=== PATIENT | female | born 1955 | race Caucasian/White ===

== ENCOUNTER 2016-07-18 20:48 | Emergency (ER) | payer OTHER ==
[2016-07-18 21:37] VITALS: BP 119/73
--- NOTE | 2016-07-18 22:27 | RAD ---
INDICATION: Pain at the first metacarpal phalangeal joint COMPARISON: None. TECHNIQUE: 4 views of the right hand were obtained. FINDINGS: The adequately corticated bones are in normal alignment. No significant focal osseous abnormality or fracture is seen. Joint spaces appear maintained. IMPRESSION: Normal right hand radiograph. If the patient's symptoms persist, follow-up imaging is recommended.
--- NOTE | 2016-07-18 22:30 | UC ---
Hand/Wrist HPI - HPI Summary HPI Summary: The patient comes in today for: 1. Right hand pain/2nd MP joint pain/swelling. Onset: Yesterday. Palliative/provocative: Pressing her hand down on the counter, writing with a pen, and picking up the vegetables out of a pot. Quality: Ache Region: Right hand, right MP joint of the index finger. Severity: 7/10 Time: Comes and goes. Associated symptoms: Event: She banged her hand yesterday on her bathroom door. Home Rx: Nothing. * - History Of Current Complaint Chief Complaint: UCUpperExtremity Stated Complaint: KNUCKLE INJURY Hx Obtained From: Patient ?: No - Allergies/Home Medications Allergies/Adverse Reactions: Allergies Allergy/AdvReac Type Severity Reaction Status Date / Time Amoxicillin [From Augmentin] AdvReac Mild GI Upset Verified 04/14/16 13:37 Clavulanic Acid AdvReac Mild GI Upset Verified 04/14/16 13:37 [From Augmentin] Codeine AdvReac Mild GI Upset Verified 04/14/16 13:37 Hydrocodone [From Vicodin] AdvReac Unknown GI Upset Verified 04/14/16 13:37 PMH/Surg Hx/FS Hx/Imm Hx Previously Healthy: No - Irritable bowel syndrome, ulcerative colitis. Endocrine History Of: Reports: Thyroid Disease - Nodules on thyroid., Dyslipidemia Denies: Diabetes, Hyperthyroidism, Hypothyroidism Cardiovascular History Of: Denies: Cardiac Disorders, Hypertension, Pacemaker/ICD, Myocardial Infarction , Congestive Heart Failure, Atrial Fibrillation, Deep Vein Thrombosis, Bleeding Disorders Respiratory History Of: Reports: COPD, Asthma GI/ History Of: Reports: Gastroesophageal Reflux - Barretts Disease Denies: Ulcer, Gastrointestinal Bleed, Gall Bladder Disease, Kidney Stones, Diverticulitis, Renal Disease, Urosepsis Neurological History Of: Denies: TIA, CVA, Dementia, Seizures, Migraine Psychological History Of: Reports: Anxiety, Depression - ON DAILY MEDS Denies: Bipolar Disorder, Schizophrenia, Post Traumatic Stress Disorder Cancer History Of: Denies: Lung Cancer, Colorectal Cancer, Breast Cancer, Prostate Cancer, Cervical Cancer Other History Of: Negative For: HIV, Hepatitis B, Hepatitis C, Anticoagulant Therapy - Surgical History Surgical History: Yes Surgery Procedure, Year, and Place: hx fna thyroid Dr Oconnell,. hysterectomy,. LEFT wrist surgeries,. Sinus surgerIES FOR RE-OCURRING TUMORS, MOST RECENT 03/31 W/ A TUBE PLACED WITH ANTIBIOTICS THAT WILL BE REMOVED 04/15/16. BILATERAL FEET BUNION REMOVAL,. RT WRIST ORIF - Family History Known Family History: Positive: Cardiac Disease, Hypertension - Social History Occupation: Disabled - COPD, Retired Alcohol Use: None Substance Use Type: None Smoking Status (MU): Light Every Day Tobacco Smoker Type: Cigarettes Amount Used/How Often: 1 PACK/WEEK Review of Systems Constitutional: Negative Skin: Negative Eyes: Negative ENT: Negative Respiratory: Negative Cardiovascular: Negative Gastrointestinal: Negative Genitourinary: Negative All Other Systems Reviewed And Are Negative: Yes Physical Exam Triage Information Reviewed: Yes Appearance: Well-Appearing, No Pain Distress, Well-Nourished Vital Signs: Initial Vital Signs Temp 98.0 F 07/18/16 21:32 Pulse 84 07/18/16 21:32 Resp 18 07/18/16 21:32 BP 119/73 07/18/16 21:32 Pulse Ox 96 07/18/16 21:32 Vital Signs Reviewed: Yes Eyes: Positive: Conjunctiva Clear. Negative: Discharge ENT: Positive: Hearing grossly normal. Negative: Pharyngeal erythema, Nasal congestion, Nasal drainage, TM bulging, TM dull, TM red, Tonsillar swelling, Tonsillar exudate Dental: Negative: Gross Decay/Caries @, Dental Fracture @ Neck: Positive: Supple, Nontender, No Lymphadenopathy. Negative: Nuchal Rigidity Respiratory: Positive: Lungs clear, No respiratory distress, No accessory muscle use Cardiovascular: Positive: RRR, No Murmur Abdomen Description: Positive: Nontender, No Organomegaly, Soft. Negative: Distended, Guarding Musculoskeletal: Positive: Strength Intact, Other: - Rogerio test positive for the right hand/wrist. There is ecchymosis around the MP joint of the right index finger. There is tenderness and mild swelling. There is tenderness of the extensor tendons of the right thumb. Neurological: Positive: Alert, Muscle Tone Normal Psychological: Positive: Age Appropriate Behavior, Consolable Skin: Negative: rashes, breakdown Diagnostics - Radiology No standard instances Xray Interpretation: No Acute Changes Radiology Interpretation Completed By: Radiologist Hand/Wrist Course/Dx - Course Course Of Treatment: Patient was told that she had De Quervain's and contusion and given a thumb spica splint and steroids. She did not want to start them until tomorrow morning. - Differential Dx/Diagnosis Differential Diagnosis/HQI/PQRI: Cellulitis, Gout, Sprain, Strain Provider Diagnoses: Right De Quervain's tendonitis. Contusion right hand MP joint of the MP joint of the index finger. Discharge - Discharge Plan Condition: Stable Disposition: HOME Patient Education Materials: DeQuervain Release (GEN), Contusion in Adults (ED) Referrals: Zachary Gaxiola DO [Primary Care Provider] - 1 Week (Please see your primary care provider next week to see how well you are doing. If you get worse, please be seen sooner in the ER or through us.)
== END 2016-07-18 22:50 | disposition home or self-care (01) ==
LOC: UCEAST 20:48
DX: M65.4 Radial styloid tenosynovitis [de Quervain] (principal); S60.221A Contusion of right hand, initial encounter; W22.8XXA Striking against or struck by other objects, initial encounter; Y93.9 Activity, unspecified; Y92.9 Unspecified place or not applicable; Z88.1 Allergy status to other antibiotic agents; Z88.5 Allergy status to narcotic agent; F17.210 Nicotine dependence, cigarettes, uncomplicated
CPT/HCPCS: 99213; G0463

== ENCOUNTER 2023-09-30 13:11 | Observation (INO) ==
[2023-09-30] MEDS: Morphine 4 MG/ML VIAL (1 ml) IV ONE ×2 (15:05→16:59)
[2023-09-30] MEDS: Ondansetron 4 mg VIAL 2 MG/ML 2 ml VIAL IV ONE (15:05)
[2023-09-30] MEDS: Lactated Ringers 1000 ml BAG 1,000 ML IV ONE (15:16)
[2023-09-30 15:25] LABS: ABS Basophils 0.1 10^3/uL (0.0-0.1); ABS Eosinophils 0.2 10^3/uL (0.0-0.5); ABS Lymphocytes 3.4 10^3/uL (1.0-4.8); ABS Monocytes 0.7 10^3/uL (0.0-0.9); ABS Neutrophils 4.7 10^3/uL (1.5-7.6); ABS Nucleated RBC 0.01 10^3/ul; Eosinophil % 2.7 %; Hematocrit 40.9 % (35-45); Hemoglobin 13.7 g/dL (11.5-14.3); Mean Corpuscular Hemoglobin 30.3 pg (27-33); Mean Corpuscular Hgb Conc 33.5 g/dL (31-36); Mean Corpuscular Volume 90.4 fL (80-97); Mean Platelet Volume 6.5 fL (7.5-11.2); Nucleated Red Blood Cells % 0.1 %/100WBC (0.0-0.8); Platelet Count 353 10^3/uL (150-450); Red Blood Count 4.53 10^6/uL (3.63-4.92); Red Cell Distribution Width 15.8 % (12-17); White Blood Count 9.1 10^3/uL (3.8-11.8)
[2023-09-30 15:46] LABS: Urine Appearance Clear; Urine Bilirubin Negative (Negative); Urine Blood Negative (Negative); Urine Color Light-Yellow; Urine Glucose Negative (Negative); Urine Ketones Negative (Negative); Urine Nitrite Negative (Negative); Urine Protein Negative (Negative); Urine Specific Gravity 1.011 (1.002-1.030); Urine Urobilinogen Negative (Negative); Urine pH 7.5 (5.0-8.0)
[2023-09-30 16:40] LABS: Albumin/Globulin Ratio 1.5 (1-3); Creatinine, Serum 0.75 mg/dL (0.51-0.95); Globulin 2.7 g/dL (2-4); Potassium 4.4 mmol/L (3.5-5.0); Total Bilirubin 0.3 mg/dL (0.2-1.0); Total Protein 6.7 g/dL (6.4-8.9); eGFR CKD-EPI 86.7 (>60)
[2023-09-30] MEDS ORDERED: Morphine 4 MG/ML VIAL (1 ml) ONE (16:54)
[2023-09-30] MEDS ORDERED: Nicotine GUM 4MG FRUIT FLAVOR PO PRN (17:44)
[2023-09-30] MEDS ORDERED: Albuterol HFA INHALER 8 gm MDI INH PRN (17:54)
[2023-09-30] MEDS: Enoxaparin 40 MG/0.4 ML SYR SUBCUT SCH (18:49)
[2023-09-30] MEDS: Nicotine PATCH 14 MG/24 HR PATCH TRANSDERM SCH (18:50)
[2023-09-30] MEDS: Albuterol/Ipratropium NEB.SOL (2.5/0.5 MG) 3 ML NEB.SOLN INH SCH (20:19)
[2023-09-30] MEDS: Morphine 2 MG/ML SYRINGE IV PRN (20:20)
[2023-09-30] MEDS: Lactated Ringers 1000 ml BAG 1,000 ML IV SCH (21:17)
[2023-10-01] MEDS: Morphine 2 MG/ML SYRINGE IV PRN (06:16)
[2023-10-01 08:45] LABS: ABS Basophils 0.1 10^3/uL (0.0-0.1); ABS Eosinophils 0.2 10^3/uL (0.0-0.5); ABS Monocytes 0.7 10^3/uL (0.0-0.9); ABS Neutrophils 5.1 10^3/uL (1.5-7.6); ABS Nucleated RBC 0.01 10^3/ul; Eosinophil % 2.6 %; Hematocrit 39.8 % (35-45); Hemoglobin 13.2 g/dL (11.5-14.3); Lymphocyte % 33.3 %; Mean Corpuscular Hemoglobin 29.9 pg (27-33); Mean Corpuscular Hgb Conc 33.1 g/dL (31-36); Mean Corpuscular Volume 90.6 fL (80-97); Mean Platelet Volume 6.3 fL (7.5-11.2); Nucleated Red Blood Cells % 0.1 %/100WBC (0.0-0.8); Platelet Count 332 10^3/uL (150-450); Red Blood Count 4.39 10^6/uL (3.63-4.92); Red Cell Distribution Width 15.5 % (12-17); White Blood Count 9.2 10^3/uL (3.8-11.8)
[2023-10-01 09:26] LABS: Calcium 9.2 mg/dL (8.6-10.3); Creatinine, Serum 0.7 mg/dL (0.51-0.95); Magnesium 2.1 mg/dL (1.9-2.7); Potassium 4.5 mmol/L (3.5-5.0); eGFR CKD-EPI 94.1 (>60)
[2023-10-01] MEDS: Enoxaparin 40 MG/0.4 ML SYR SUBCUT SCH (13:26)
[2023-10-02 09:10] LABS: ABS Eosinophils 0.1 10^3/uL (0.0-0.5); ABS Lymphocytes 4.5 10^3/uL (1.0-4.8); ABS Monocytes 1.1 10^3/uL (0.0-0.9); ABS Neutrophils 9.7 10^3/uL (1.5-7.6); ABS Nucleated RBC 0.01 10^3/ul; Eosinophil % 0.8 %; Hematocrit 36.7 % (35-45); Hemoglobin 12.3 g/dL (11.5-14.3); Lymphocyte % 28.8 %; Mean Corpuscular Hemoglobin 30.3 pg (27-33); Mean Corpuscular Hgb Conc 33.5 g/dL (31-36); Mean Corpuscular Volume 90.5 fL (80-97); Mean Platelet Volume 6.7 fL (7.5-11.2); Platelet Count 333 10^3/uL (150-450); Red Blood Count 4.05 10^6/uL (3.63-4.92); Red Cell Distribution Width 15.2 % (12-17); White Blood Count 15.5 10^3/uL (3.8-11.8)
[2023-10-02 09:26] LABS: Creatinine, Serum 0.75 mg/dL (0.51-0.95); Magnesium 2.1 mg/dL (1.9-2.7); Potassium 4.4 mmol/L (3.5-5.0); eGFR CKD-EPI 86.7 (>60)
[2023-10-02] MEDS: Lactated Ringers 1000 ml BAG 1,000 ML IV SCH ×2 (10:58→22:10)
[2023-10-02] MEDS ORDERED: Midazolam 2 mg/2 ml VIAL 1 mg/ml 2 ml VIAL (2 mg) ONE (18:24)
[2023-10-02] MEDS ORDERED: fentaNYL 100 mcg/2 ml 50 MCG/ML VIAL ONE (18:24)
[2023-10-02] MEDS ORDERED: Levalbuterol 1.25MG/0.5ML NEB.SOL ONE (19:25)
[2023-10-02] MEDS ORDERED: Propofol 10 MG/ML 20 ML BTL ONE (19:29)
[2023-10-02] MEDS ORDERED: Lidocaine 1% VIAL 10 MG/ML 30 ML VIAL ONE (19:32)
[2023-10-02] MEDS ORDERED: fentaNYL 100 mcg/2 ml 50 MCG/ML VIAL IV PRN ×2 (19:39→20:31)
[2023-10-02] MEDS ORDERED: Naloxone 0.4 mg VIAL 0.4 mg/ml 1 ml VIAL IV PRN ×2 (19:39→20:31)
[2023-10-02] MEDS: Levalbuterol 1.25MG/0.5ML NEB.SOL INH ONE (19:45)
[2023-10-02] MEDS ORDERED: ceFAZolin 2 GM PREMIX 2 GM/50 ML BAG ONE (19:47)
[2023-10-02] MEDS ORDERED: NS 0.45% 1000 ml BAG 1,000 ML IV SCH (20:00)
[2023-10-02] MEDS: Acetaminophen IV 1 GM/100ML 1,000 MG/100 ML BAG IV ONE ×2 (22:03)
[2023-10-02] MEDS: Buffered Lidocaine 1% SYRIN 1 ml INTRADERM ONE (22:03)
[2023-10-03 05:20] LABS: Hematocrit 36.9 % (35-45); Mean Corpuscular Hemoglobin 29.5 pg (27-33); Mean Corpuscular Hgb Conc 32.5 g/dL (31-36); Mean Corpuscular Volume 90.9 fL (80-97); Mean Platelet Volume 6.6 fL (7.5-11.2); Platelet Count 337 10^3/uL (150-450); Red Blood Count 4.06 10^6/uL (3.63-4.92); Red Cell Distribution Width 15.6 % (12-17); White Blood Count 16.4 10^3/uL (3.8-11.8)
[2023-10-03 06:06] LABS: Calcium 9.2 mg/dL (8.6-10.3); Creatinine, Serum 0.76 mg/dL (0.51-0.95); Potassium 4.7 mmol/L (3.5-5.0); eGFR CKD-EPI 85.3 (>60)
[2023-10-03 10:28] VITALS: BP 164/93
== END 2023-10-03 15:45 | disposition home or self-care (01) ==
LOC: ED 13:11 → EDHOLD 13:11 → SUATTDRO 17:06 → MEDTELE 19:58
PROVIDERS: ADMIT Student in an Organized Health Care Education/Training Program; ATTEND Family Medicine